=== PATIENT | female | born 1950 | race Caucasian/White ===

== ENCOUNTER → 2016-04-25 | Outpatient (CLI) | payer MEDICARE, OTHER | LOC: RAD 18:52 | PROVIDERS: ATTEND Neurological Surgery | DX: M54.2 Cervicalgia (principal); M54.5 Low back pain; M47.892 Other spondylosis, cervical region; M51.36 Other intervertebral disc degeneration, lumbar region | CPT/HCPCS: 72141; 72148 ==

== ENCOUNTER → 2016-05-18 | Outpatient (CLI) | payer MEDICARE, OTHER ==
[2016-05-18 12:36] LABS: PROTHROMBIN TIME 13.5 SEC (11.4-15.4)
[2016-05-18 12:37] LABS: PARTIAL THROMBOPLASTIN TIME 31.1 SEC (23.5-35.8)
== END ==
LOC: OD 11:50
PROVIDERS: ATTEND Pain Medicine Interventional Pain Medicine
DX: D68.0 Von Willebrand disease (principal)
CPT/HCPCS: 36415; 85610; 85730

== ENCOUNTER 2016-08-03 07:44 | Day surgery (SDC) | payer MEDICARE, OTHER ==
--- NOTE | 2016-07-27 14:30 | HISTORY AND PHYSICAL E ---
History and Physical NAME: MIAN NGO : 1950 AGE: 65Y ADMITTED: 08/03/2016 ROOM: REASON FOR ADMISSION: Admit for endoscopy on 08/03/2016. HISTORY AND PHYSICAL: The patient presented with dysphagia. She did have endoscopy and dilatation in 2012 showing esophageal stricture. We gave her Fentanyl 150 mcg and Versed 6 mg. Endoscopy showed a stricture at distal esophagus versus spasm, and we were unable to advance the scope. We started with balloon size 8, 9, 10. With the balloon size 10 x3 we advanced the scope after the balloon went into the stomach. There was no bleeding, no sign of effective dilatation. Stomach showed no ulcers, mild gastritis. Basically, the patient did have a spasm that responded to dilatation with balloon size 8, 9 and 10. She was given a GI cocktail which has 10 mL viscous Xylocaine 10%, 10 mL and 15 mL Mylanta, total 35 mL every 4 hours, and we gave her a supply for a few days. Upper stomach shows some gastritis. Chest x-ray is negative. PAST MEDICAL HISTORY: The patient did have a history of hypoglycemia, type 2 diabetes, gastroparesis, hypothyroidism, IBS, fibromyalgia. PHYSICAL EXAMINATION: VITAL SIGNS: Blood pressure is 120/60, pulse 80, respirations 18, temp 98. HEENT: Normal. ABDOMEN: Soft. NEUROLOGIC: Negative. END OF DICTATION DICTATING PHYSICIAN: JIL ZAYAS M.D. [id number] PHY#: [id number] ID: [id number] JOB#: [id number] ACCT: [id number] cc:JIL ZAYAS M.D. >
[2016-07-31 12:38] LABS: HEMATOCRIT 37.6 % (36.0-47.0); HEMOGLOBIN 12.3 g/dL (12.0-15.5); HGB HCT DIFFERENCE -0.7; MEAN CORPUSCULAR HEMOGLOBIN 25.3 pg (27.0-33.4); MEAN CORPUSCULAR HGB CONC 32.6 g/dL (32.0-36.0); MEAN CORPUSCULAR VOLUME 77 fl (80-97); RED BLOOD COUNT 4.85 10^6/uL (3.72-5.28); RED CELL DISTRIBUTION WIDTH 14.7 % (11.5-14.0); WHITE BLOOD COUNT 8.7 10^3/uL (4.0-10.5)
[2016-07-31 12:57] LABS: ANION GAP 12 (5-19); BLOOD UREA NITROGEN 28 mg/dL (7-20); CALCIUM 9.8 mg/dL (8.4-10.2); CARBON DIOXIDE 28 mmol/L (22-30); CHLORIDE 101 mmol/L (98-107); CREATININE RESULT 0.78 mg/dL (0.52-1.25); GLUCOSE 150 mg/dL (75-110); POTASSIUM 4.3 mmol/L (3.6-5.0); SODIUM 140.7 mmol/L (137-145)
--- NOTE | 2016-07-31 13:23 | EKG REPORT ---
SEVERITY:- NORMAL ECG - SINUS RHYTHM : Confirmed by: Peyman Cavazos MD 31-Jul-2016 13:22:10
[~2016-08-03 07:44] MED LIST: LACTATED RINGERS 1000 ML IV PRN; LIDOCAINE 0.5% INJ-PF (5 MG/ML) 50 ML SDV SUBCUT PRN
[2016-08-03] MEDS ORDERED: PROPOFOL INJ 200 MG/20 ML VIAL IV ONE (08:41)
[2016-08-03] MEDS ORDERED: PROMETHAZINE HCL INJ 25 MG/1 ML VIAL IV PRN ×2 (09:47)
[2016-08-03] MEDS ORDERED: FENTANYL CITRATE INJ/PF 100 MCG/2 ML AMPUL IV PRN ×3 (09:47)
[2016-08-03] MEDS ORDERED: MEPERIDINE HCL/PF INJ 25 MG/1 ML DISP.SYRIN IV PRN (09:47)
[2016-08-03] MEDS ORDERED: DIPHENHYDRAMINE HCL 50 MG/ML VIAL IV PRN (09:47)
[2016-08-03 12:01] VITALS: BP 129/60
--- NOTE | 2016-08-03 12:59 | OPERATIVE REPORT E ---
Operative Report NAME: MIAN NGO : 1950 AGE: 65Y DATE OF SURGERY: 08/02/2016 ROOM: PREOPERATIVE DIAGNOSIS: The patient is a 65-year-old female, preop dysphagia, abdominal pain. POSTOPERATIVE DIAGNOSES: 1. Moderate gastritis. 2. Mild duodenitis. 3. Mild esophagitis. SURGEON: JIL ZAYAS M.D. TISSUE REMOVED OR ALTERED: Balloon dilatation, size 12 x3. ANESTHESIA: Done in the OR with anesthesia standby, propofol. DESCRIPTION OF PROCEDURE: After adequate sedation, scope advanced, no difficulty. Esophagoscopy: Junction at 40 cm. There was no definite stricture seen but there was some spasm. Balloon dilatation because of the persistent dysphagia and the previous history of dilatation, we proceed and dilated the GE junction with size 12 balloon x3. There was no bleeding. Gastroscopy: Diffuse gastritis. Duodenoscopy: Mild duodenitis. CONCLUSION: 1. Esophageal spasm versus mild stricture. No definite stricture, dilated size 12. 2. Gastritis. 3. Duodenitis. PLAN: 1. Full liquid diet today. 2. Soft, low-residue tomorrow. 3. Hold aspirin and nonsteroidals 3 days. DICTATING PHYSICIAN: JIL ZAYAS M.D. [id number] [facility]#: [id number] ID: [id number] JOB#: [id number] ACCT: [id number] cc:[facility] JIL ZAYAS M.D. >
--- NOTE | 2016-08-05 19:25 | DISCHARGE SUMMARY E ---
Discharge Summary NAME: MIAN NGO : 1950 AGE: 65Y ADMITTED: 08/03/2016 DISCHARGED: 08/03/2016 HISTORY AND PHYSICAL: The patient is 65 and presented with dysphagia. Upper endoscopy shows most likely spasm with no stricture. The patient was dilated with balloon size 12 x3. No evidence of bleeding. The patient discharged on full liquid diet today, then soft low residue and the patient is to see us in the office in the next few days. FINAL DIAGNOSES: 1. Reflux. 2. Abdominal pain. 3. Gastritis. 4. Esophageal spasm rule out stricture. PROCEDURE: EGD with balloon dilatation size 12 x3 done under propofol with anesthesia standby. The patient tolerated the procedure well and discharged to her room in stable condition. PLAN: Soft diet tomorrow, full liquid today. The patient is to see us in the office in the next few days. DICTATING PHYSICIAN: JIL ZAYAS M.D. [id number] PHY#: [id number] ID: [id number] JOB#: [id number] ACCT: [id number] cc:JIL ZAYAS M.D. >
== END 2016-08-03 12:03 | disposition home or self-care (01) ==
LOC: OROUT 07:44
PROVIDERS: ATTEND Specialist
PROC: 0D758ZZ Dilation of Esophagus, Via Natural or Artificial Opening Endoscopic (ICD-10-PCS; principal; 2016-08-03 09:45)
DX: K22.4 Dyskinesia of esophagus (principal); K21.0 Gastro-esophageal reflux disease with esophagitis; K29.70 Gastritis, unspecified, without bleeding; K29.80 Duodenitis without bleeding; K21.9 Gastro-esophageal reflux disease without esophagitis; E03.9 Hypothyroidism, unspecified; E11.9 Type 2 diabetes mellitus without complications; J45.909 Unspecified asthma, uncomplicated; I49.9 Cardiac arrhythmia, unspecified; M19.90 Unspecified osteoarthritis, unspecified site; I10 Essential (primary) hypertension; Z79.899 Other long term (current) drug therapy; Z86.73 Personal history of transient ischemic attack (TIA), and cerebral infarction without residual deficits
CPT/HCPCS: 43249; 93005; 36415; 82962; 85027; 80048; 71020; 93010; C1726; J2704; 740

== ENCOUNTER → 2016-08-17 | Outpatient (CLI) | payer MEDICARE, OTHER ==
[2016-08-17 14:11] LABS: PROTHROMBIN TIME 13.3 SEC (11.4-15.4)
[2016-08-17 14:12] LABS: PARTIAL THROMBOPLASTIN TIME 29.3 SEC (23.5-35.8)
== END ==
LOC: OD 13:20
PROVIDERS: ATTEND Pain Medicine Interventional Pain Medicine
DX: D68.0 Von Willebrand disease (principal)
CPT/HCPCS: 36415; 85610; 85730

== ENCOUNTER → 2016-10-03 | Outpatient (CLI) | payer MEDICARE, OTHER ==
[2016-10-03 15:05] LABS: PROTHROMBIN TIME 13.5 SEC (11.4-15.4)
[2016-10-03 15:06] LABS: PARTIAL THROMBOPLASTIN TIME 30.9 SEC (23.5-35.8)
== END ==
LOC: OD 13:38
PROVIDERS: ATTEND Pain Medicine Interventional Pain Medicine
DX: Z79.891 Long term (current) use of opiate analgesic (principal); Z79.01 Long term (current) use of anticoagulants
CPT/HCPCS: 36415; 85610; 85730

== ENCOUNTER → 2017-07-10 | Outpatient (CLI) | payer MEDICARE, OTHER ==
--- NOTE | 2017-07-11 19:12 | WOMENS IMAGING REPORT ---
EXAM DESCRIPTION: 3D SCREENING MAMMO BILAT COMPLETED DATE/TIME: 07/10/2017 4:38 pm REASON FOR STUDY: ROUTINE SCREENING;Z12.31 Z12.31 ENCNTR SCREEN MAMMOGRAM FOR MALIGNANT NEOPLASM OF VIC COMPARISON: Mammograms 09/22/2011 TECHNIQUE: Standard craniocaudal and mediolateral oblique views of each breast recorded using digita l acquisition and breast tomosynthesis. LIMITATIONS: None. FINDINGS: Findings present which are benign by mammographic criteria. No suspicious masses, calcifi cations or architectural distortion. Pertinent benign findings: Stable benign bilateral breast parenchymal and vascular calcifications. Read with the assistance of CAD. .[facility] - R2 Cenova Version 1.3 .[facility] - R2 Cenova Version 1.3 .[facility] - R2 Cenova Version 2.4 .[facility] - R2 Cenova Version 2.4 .[facility] - R2 Rope Walker Version 9.2 Benign mammographic findings may include one or more of the following: Smooth masses, popcorn/rim/co arse calcifications, asymmetries, post-procedure changes, and lesions with long-standing stability. IMPRESSION: BENIGN MAMMOGRAPHIC FINDINGS. BIRADS 2 BREAST DENSITY: b. There are scattered areas of fibroglandular density. BIRAD: 2 BENIGN FINDING(S) RECOMMENDATION: RECOMMENDATION: ROUTINE SCREENING Please continue yearly bilateral screening tomosynthesis in June 2018 COMMENT: The patient has been notified of the results by letter per [place] requirements. Additional no tification policies are in place for contacting patient with suspicious or incomplete findings. Quality ID #[id number]: The [employer] recommends an annual screening mammogram for women aged 40 years or over. This facility utilizes a reminder system to ensure that all patients receive reminder letters, and/or direct phone calls for appointments. This includes reminders for routine scr eening mammograms, diagnostic mammograms, or other Breast Imaging Interventions when appropriate. Th is patient will be placed in the appropriate reminder system. The [employer] (ACR) has developed recommendations for screening MRI of the breast s in certain patient populations, to be used in conjunction with mammography. Breast MRI surveillanc e may be appropriate for women with more than 20% lifetime risk of developing breast cancer as deter mined by genetic testing, significant family history of the disease, or history of mantle radiation f or Hodgkins Disease. ACR Practice Guidelines 2008. DBT Technology DBT is a type of tomographic mammography. With conventional mammography, overlapping breast tissue ma y make lesions difficult to detect, even with good compression. DBT uses an x-ray tube that rotates a round the breast, taking images at different angles. These images are then combined to create thin sl ices of the breast that the radiologist can view as a 3D reconstruction. The HoloNexio unit can perform full-field digital mammograms (2D imaging); or DBT (3D imaging); or both, in a combination mode that quickly performs both the mammogram and the tomosynthesis scan while the breast is still compressed. PQRS 6045F: Fluoroscopic imaging is not utilized for breast tomosynthesis. TECHNICAL DOCUMENTATION: FINDING NUMBER: (1) ASSESSMENT: (1) JOB ID: [id number] [employer]- All Rights Reserved Reading location - IP/workstation name: [email or web address]
== END ==
LOC: WI 15:33
PROVIDERS: ATTEND Internal Medicine Medical Oncology
DX: Z12.31 Encounter for screening mammogram for malignant neoplasm of breast (principal)
CPT/HCPCS: 77063; 77067

== ENCOUNTER 2017-10-18 06:55 | Day surgery (SDC) | payer MEDICARE, OTHER ==
[~2017-10-18 06:55] MED LIST changes: +BESIFLOXACIN HCL 0.6% OPH SUSP 5 ML BOTTLE OS PRN; +CYCLOPENTOLATE 0.2%/PHENYLEPHRINE 1% OPH SOLN 2 ML OS PRN; +KETOROLAC TROMETHAMINE 0.45% 4 DROP/0.4 ML DROPERETTE OS PRN; -LACTATED RINGERS 1000 ML IV PRN; -LIDOCAINE 0.5% INJ-PF (5 MG/ML) 50 ML SDV SUBCUT PRN; +TETRACAINE HCL 0.5% OPH SOLN 2 ML OS PRN; +TROPICAMIDE 1% OPH SOLN 3 ML OS PRN
[2017-10-18] MEDS ORDERED: MIDAZOLAM 2 MG/2 ML INJ ONE ×2 (07:00→08:58)
[2017-10-18] MEDS: TROPICAMIDE 1% OPH SOLN 3 ML OS PRN ×3 (07:43→08:03)
[2017-10-18] MEDS: BESIFLOXACIN HCL 0.6% OPH SUSP 5 ML BOTTLE OS PRN ×3 (07:43→08:46)
[2017-10-18] MEDS: CYCLOPENTOLATE 0.2%/PHENYLEPHRINE 1% OPH SOLN 2 ML OS PRN ×4 (07:43→08:03)
[2017-10-18] MEDS: TETRACAINE HCL 0.5% OPH SOLN 2 ML OS PRN ×3 (07:44→08:26)
[2017-10-18] MEDS ORDERED: EPINEPHRINE INJ/PF 1 MG/1 ML AMPULE ONE (07:45)
[2017-10-18] MEDS ORDERED: LIDOCAINE 1% INJ-PF (10 MG/ML) 30 ML SDV ONE (07:45)
[2017-10-18] MEDS ORDERED: CHONDR SU A NA/HYALUR INTRAOC KIT (SURGICARE) ONE (07:46)
[2017-10-18] MEDS ORDERED: FENTANYL CITRATE INJ/PF 100 MCG/2 ML AMPUL ONE (08:07)
--- NOTE | 2017-10-18 19:00 | [facility] DISCHARGE SUMMARY E ---
[facility] Discharge Summary NAME: MIAN NGO AGE: 67Y ADMITTED: 10/18/2017 DISCHARGED: 10/18/2017 HOSPITAL COURSE: This is a 67-year-old female who underwent cataract extraction of the left eye. DIAGNOSIS: CATARACT, LEFT EYE. She underwent surgery because she was having trouble seeing words on the television. DISCHARGE INSTRUCTIONS: She should be on a regular diet. No bending at her waist, no heavy lifting. She should use her Besivance, Ilevro, and Durezol at 3 p.m. and 8 p.m. and sleep with a rigid shield. I will see her for her 1 day postoperative tomorrow. DICTATING PHYSICIAN: CHASITY COVARRUBIAS M.D. [id number] PHY#: [id number] ID: [id number] JOB#: [id number] ACCT: [id number] cc:CHASITY COVARRUBIAS M.D. >
--- NOTE | 2017-10-18 19:01 | [facility] OPERATIVE REPORT E ---
[facility] Operative Report NAME: MIAN NGO AGE: 67Y DATE OF SURGERY: 10/18/2017 ROOM: PREOPERATIVE DIAGNOSIS: CATARACT, LEFT EYE. POSTOPERATIVE DIAGNOSIS: CATARACT, LEFT EYE. OPERATION: Cataract extraction with insertion of an IOL of the left eye. SURGEON: CHASITY COVARRUBIAS M.D. ANESTHESIA: Topical. PROCEDURE: After obtaining appropriate consent, the patient's left eye was prepped and draped in sterile fashion as well as the surgeon in a sterile manner and cataract surgery was started. First a paracentesis blade was used to make a side-port incision. Viscoelastic was used to inflate the anterior chamber. Next a 2.4 mm incision was made with a 2.4 mm blade, clear corneal temporally. A continuous capsulorrhexis was made using a cystotome and Utrata forceps. Following this hydrodissection was carried out to make the lens fully loose and mobile and it was rotated 90 degrees. Following this, a mntokt-pam-zhnrzcy technique was used to phacoemulsify the lens with a CDE of 5.64. The remaining cortex was removed with irrigation/aspiration. Provisc was instilled into the capsular bag to inflate the bag. A SN60WF, 18.5 diopter lens was placed. The remaining viscoelastic material was removed with irrigation/aspiration. Following this, the incision was found to be watertight. Besivance was instilled into the eye and a protective shield was placed over the eye. The patient returned to the postoperative recovery in stable condition. DICTATING PHYSICIAN: CHASITY COVARRUBIAS M.D. [id number] PHY#: [id number] ID: [id number] JOB#: [id number] ACCT: [id number] cc:CHASITY COVARRUBIAS M.D. >
== END 2017-10-18 09:35 | disposition home or self-care (01) ==
LOC: SC 06:55
PROVIDERS: ATTEND Internal Medicine
DX: H25.813 Combined forms of age-related cataract, bilateral (principal); J44.9 Chronic obstructive pulmonary disease, unspecified; I10 Essential (primary) hypertension; M19.90 Unspecified osteoarthritis, unspecified site; K21.9 Gastro-esophageal reflux disease without esophagitis; E11.9 Type 2 diabetes mellitus without complications; E07.9 Disorder of thyroid, unspecified; Z79.51 Long term (current) use of inhaled steroids; Z79.899 Other long term (current) drug therapy; Z79.84 Long term (current) use of oral hypoglycemic drugs; Z79.4 Long term (current) use of insulin; Z88.5 Allergy status to narcotic agent; Z88.0 Allergy status to penicillin; Z88.8 Allergy status to other drugs, medicaments and biological substances
CPT/HCPCS: 66984; 82962; V2632; J2250; J3490 ×2; A9270; J0171; 142; J3010

== ENCOUNTER 2017-11-15 09:10 | Day surgery (SDC) | payer MEDICARE, OTHER ==
[~2017-11-15 09:10] MED LIST changes: -BESIFLOXACIN HCL 0.6% OPH SUSP 5 ML BOTTLE OS PRN; -CYCLOPENTOLATE 0.2%/PHENYLEPHRINE 1% OPH SOLN 2 ML OS PRN; +KETOROLAC TROMETHAMINE 0.45% 4 DROP/0.4 ML DROPERETTE OD PRN; -KETOROLAC TROMETHAMINE 0.45% 4 DROP/0.4 ML DROPERETTE OS PRN; -TETRACAINE HCL 0.5% OPH SOLN 2 ML OS PRN; -TROPICAMIDE 1% OPH SOLN 3 ML OS PRN
[2017-11-15] MEDS: CYCLOPENTOLATE 0.2%/PHENYLEPHRINE 1% OPH SOLN 2 ML OD PRN ×3 (09:36→10:05)
[2017-11-15] MEDS: TROPICAMIDE 1% OPH SOLN 3 ML OD PRN ×3 (09:36→10:05)
[2017-11-15] MEDS: BESIFLOXACIN HCL 0.6% OPH SUSP 5 ML BOTTLE OD PRN ×4 (09:37→10:45)
[2017-11-15] MEDS: TETRACAINE HCL 0.5% OPH SOLN 2 ML OD PRN ×4 (09:38→10:19)
[2017-11-15] MEDS ORDERED: MIDAZOLAM 2 MG/2 ML INJ ONE ×2 (10:00→10:34)
[2017-11-15] MEDS: LIDOCAINE 1% INJ-PF (10 MG/ML) 30 ML SDV ONE ×2 (10:19→10:35)
[2017-11-15] MEDS: CHONDR SU A NA/HYALUR INTRAOC KIT (SURGICARE) ONE ×2 (10:20→10:35)
[2017-11-15] MEDS: EPINEPHRINE INJ/PF 1 MG/1 ML AMPULE ONE ×2 (10:20→10:35)
--- NOTE | 2017-11-15 20:45 | [facility] DISCHARGE SUMMARY E ---
[facility] Discharge Summary NAME: MIAN NGO AGE: 67Y ADMITTED: 11/15/2017 DISCHARGED: 11/15/2017 FINAL DIAGNOSIS: Cataract, right eye. HOSPITAL COURSE: This is a 67-year-old female who underwent cataract extraction of the right eye. She underwent surgery because she was having difficulty with increased glare from headlights. DISCHARGE INSTRUCTIONS: She should be on a regular diet. No bending at her waist, no heavy lifting. She should use her Besivance, Ilevro and Durezol at 3:00 p.m. and 8:00 p.m. Sleep with a rigid shield. I will see her for a 1-day postoperative tomorrow. DICTATING PHYSICIAN: CHASITY COVARRUBIAS M.D. [id number] PHY#: [id number] ID: [id number] JOB#: [id number] ACCT: [id number] cc:CHASITY COVARRUBIAS M.D. >
--- NOTE | 2017-11-15 20:45 | [facility] OPERATIVE REPORT E ---
[facility] Operative Report NAME: MIAN NGO AGE: 67Y DATE OF SURGERY: 11/15/2017 ROOM: PREOPERATIVE DIAGNOSIS: CATARACT, RIGHT EYE. POSTOPERATIVE DIAGNOSIS: CATARACT, RIGHT EYE. OPERATION: Cataract extraction with insertion of an IOL of the right eye. SURGEON: CHASITY COVARRUBIAS M.D. ANESTHESIA: Topical. PROCEDURE: After obtaining appropriate consent, the patient's right eye was prepped and draped in sterile fashion as well as the surgeon in a sterile manner and cataract surgery was started. First a paracentesis blade was used to make a side-port incision. Viscoelastic was used to inflate the anterior chamber. Next a 2.4 mm incision was made with a 2.4 mm blade, clear corneal temporally. A continuous capsulorrhexis was made using a cystotome and Utrata forceps. Following this hydrodissection was carried out to make the lens fully loose and mobile and it was rotated 90 degrees. Following this, a uzziml-vwn-qysxvfb technique was used to phacoemulsify the lens with a CDE of 5.39. The remaining cortex was removed with irrigation/aspiration. Provisc was instilled into the capsular bag to inflate the bag. A SN60WF, 18.0 diopter lens was placed. The remaining viscoelastic material was removed with irrigation/aspiration. Following this, the incision was found to be watertight. Besivance was instilled into the eye and a protective shield was placed over the eye. The patient returned to the postoperative recovery in stable condition. DICTATING PHYSICIAN: CHASITY COVARRUBIAS M.D. [id number] PHY#: [id number] ID: [id number] JOB#: [id number] ACCT: [id number] cc:CHASITY COVARRUBIAS M.D. >
== END 2017-11-15 11:31 | disposition home or self-care (01) ==
LOC: SC 09:10
PROVIDERS: ATTEND Internal Medicine
DX: H25.813 Combined forms of age-related cataract, bilateral (principal); H43.813 Vitreous degeneration, bilateral; H04.123 Dry eye syndrome of bilateral lacrimal glands; H40.013 Open angle with borderline findings, low risk, bilateral; Z96.1 Presence of intraocular lens; E03.9 Hypothyroidism, unspecified; E78.00 Pure hypercholesterolemia, unspecified; K21.9 Gastro-esophageal reflux disease without esophagitis; E11.9 Type 2 diabetes mellitus without complications; I10 Essential (primary) hypertension; M79.7 Fibromyalgia; G47.30 Sleep apnea, unspecified; G43.909 Migraine, unspecified, not intractable, without status migrainosus; Z88.0 Allergy status to penicillin; Z88.5 Allergy status to narcotic agent; Z88.8 Allergy status to other drugs, medicaments and biological substances; Z88.6 Allergy status to analgesic agent; Z79.51 Long term (current) use of inhaled steroids; Z79.899 Other long term (current) drug therapy; Z79.4 Long term (current) use of insulin; Z79.84 Long term (current) use of oral hypoglycemic drugs
CPT/HCPCS: 66984; 82962; V2632; J2250; J3490 ×2; A9270; J0171; 142

== ENCOUNTER → 2017-12-26 | Outpatient (CLI) | payer MEDICARE, OTHER ==
[2017-12-26 15:48] LABS: INTERNATIONAL RATION (INR) 1.02; PROTHROMBIN TIME 13.9 SEC (11.4-15.4)
[2017-12-26 15:49] LABS: PARTIAL THROMBOPLASTIN TIME 30.5 SEC (23.5-35.8)
== END ==
LOC: OD 14:57
PROVIDERS: ATTEND Pain Medicine Interventional Pain Medicine
DX: D68.0 Von Willebrand disease (principal)
CPT/HCPCS: 36415; 85610; 85730

== ENCOUNTER → 2018-02-06 | Outpatient (CLI) | payer MEDICARE, OTHER ==
[2018-02-06 16:10] LABS: INTERNATIONAL RATION (INR) 0.93
[2018-02-06 16:11] LABS: PARTIAL THROMBOPLASTIN TIME 31.4 SEC (23.5-35.8)
== END ==
LOC: OD 14:49
PROVIDERS: ATTEND Pain Medicine Interventional Pain Medicine
DX: D68.0 Von Willebrand disease (principal)
CPT/HCPCS: 36415; 85610; 85730

== ENCOUNTER → 2018-04-10 | Outpatient (CLI) | payer MEDICARE, OTHER ==
[2018-04-10 17:41] LABS: INTERNATIONAL RATION (INR) 0.92; PROTHROMBIN TIME 12.8 SEC (11.4-15.4)
[2018-04-10 17:42] LABS: PARTIAL THROMBOPLASTIN TIME 29.2 SEC (23.5-35.8)
== END ==
LOC: LAB 17:13
PROVIDERS: ATTEND Pain Medicine Interventional Pain Medicine
DX: D68.0 Von Willebrand disease (principal)
CPT/HCPCS: 36415; 85610; 85730

== ENCOUNTER → 2018-07-04 | Outpatient (CLI) | payer MEDICARE, OTHER ==
[2018-07-04 17:06] LABS: INTERNATIONAL RATION (INR) 0.93; PROTHROMBIN TIME 12.9 SEC (11.4-15.4)
[2018-07-04 17:07] LABS: PARTIAL THROMBOPLASTIN TIME 22.1 SEC (23.5-35.8)
== END ==
LOC: OD 15:46
PROVIDERS: ATTEND Pain Medicine Interventional Pain Medicine
DX: Z79.891 Long term (current) use of opiate analgesic (principal); D68.0 Von Willebrand disease
CPT/HCPCS: 36415; 85610; 85730

== ENCOUNTER → 2018-09-20 | Outpatient (CLI) | payer MEDICARE, OTHER ==
[2018-09-20 15:12] LABS: INTERNATIONAL RATION (INR) 0.92; PROTHROMBIN TIME 12.8 SEC (11.4-15.4)
== END ==
LOC: OD 13:39
PROVIDERS: ATTEND Pain Medicine Interventional Pain Medicine
DX: D68.0 Von Willebrand disease (principal); Z79.891 Long term (current) use of opiate analgesic
CPT/HCPCS: 36415; 85610; 85730

== ENCOUNTER 2018-09-24 15:41 | Emergency (ER) | payer MEDICARE, OTHER ==
[2018-09-24] MEDS ORDERED: HYDROMORPHONE HCL INJ/PF 2 MG/ML AMPULE IV ONE (17:13)
--- NOTE | 2018-09-24 17:16 | ER Document Report ---
ED Medical Screen (RME) - General Chief Complaint: High Blood Pressure Stated Complaint: BLOOD PRESSURE PROBLEM Time Seen by Provider: 09/24/18 17:07 Primary Care Provider: COURTNEY MARTÍNEZ MD [Primary Care Provider] - Follow up as needed Mode of Arrival: Ambulatory Information source: Patient Notes: Patient presents the emergency department with complaints of back pain headache. Also reports she was sent over from [facility] for hypertensive emergency. Patient reports she was supposed to get a procedure done today with dr martínez at [facility]. Patient reports whenever she is in pain her blood pressure really spikes. She reports she usually takes 4 mg of Dilaudid every 4 hours. Last dose was at 1400 I have greeted and performed a rapid initial assessment of this patient. A comprehensive ED assessment and evaluation of the patient, analysis of test results and completion of the medical decision making process will be conducted by additional ED providers. Dictation of this chart was performed using voice recognition software; therefore, there may be some unintended grammatical errors. TRAVEL OUTSIDE OF THE [place] IN LAST 30 DAYS: No - Related Data Allergies/Adverse Reactions: codeine [Codeine] Allergy (Severe, Verified 10/18/17 07:52) RASH, ITCHING, SOB hydrochlorothiazide Allergy (Severe, Verified 10/18/17 07:52) Diarrhea lisinopril Allergy (Severe, Verified 10/18/17 07:52) Diahhrea morphine [Morphine] Allergy (Severe, Verified 10/18/17 07:52) SEVERE VOMITING NSAIDS (Non-Steroidal Anti-Inflamma [Nsaids] Allergy (Severe, Verified 10/18/17 07:52) INCREASE BLEEDING,SPONTANEOUS VESSELS BLEED Penicillins Allergy (Severe, Verified 10/18/17 07:52) BURNING RASH Soap [From Betadine] Allergy (Severe, Verified 10/18/17 07:52) BURNING RASH tapentadol HCl [From Nucynta] Allergy (Severe, Verified 10/18/17 07:52) vertigo severe thimerosal [Thimerosal] Allergy (Severe, Verified 10/18/17 07:52) eyes swell, rash, very sick latex [Latex] Allergy (Intermediate, Verified 10/18/17 07:52) ITCHING, BURNING EYES, swelling eyes albiglutide [From Tanzeum] Allergy (Verified 10/18/17 07:52) Makes IBS and GERD worse, "unable to keep anything down" gabapentin [From Neurontin] Allergy (Verified 10/18/17 07:52) "Excessive sweating" glimepiride [From Amaryl] Allergy (Verified 10/18/17 07:52) Makes IBS and GERD worse, "unable to keep anything down" metformin Allergy (Verified 10/18/17 07:52) Makes IBS and GERD worse, "unable to keep anything down" povidone-iodine [From Betadine] Allergy (Verified 10/18/17 07:52) BURNING RASH tramadol [Tramadol] Allergy (Verified 10/18/17 07:52) iodine [Iodine] Adverse Reaction (Severe, Verified 10/18/17 07:52) BURNING, RASH garlic Allergy (Severe, Uncoded 07/28/16 13:21) bloating, vomiting, diarrhea shrimp Allergy (Severe, Uncoded 07/28/16 13:21) No Enteric medications Allergy (Uncoded 07/28/16 13:21) Past Medical History - Social History Frequency of alcohol use: None Drug Abuse: None - Past Medical History Cardiac Medical History: Reports: Hx Hypertension - USE MANUAL CUFF/MEDICATED Denies: Hx Atrial Fibrillation, Hx Congestive Heart Failure, Hx Coronary Artery Disease, Hx Heart Attack, Hx Hypercholesterolemia, Hx Peripheral Vascular Disease, Hx Pulmonary Embolism, Hx Heart Murmur Pulmonary Medical History: Reports: Hx Asthma, Hx Bronchitis - hx of, Hx Pneumonia - august 2012, Hx Sleep Apnea - cpap Denies: Hx COPD, Hx Respiratory Failure, Hx Tuberculosis Neurological Medical History: Reports: Hx Migraine. Denies: Hx Cerebrovascular Accident, Hx Seizures Endocrine Medical History: Reports: Hx Diabetes Mellitus Type 2, Hx Hypothyroidism - on meds. Denies: Hx Graves' Disease, Hx Hyperthyroidism Renal/ Medical History: Denies: Hx End Stage Renal Disease, Hx Kidney Stones, Hx Ovarian Cysts, Hx Peritoneal Dialysis, Hx Pelvic Inflammatory Disease Malignancy Medical History: Denies: Hx Breast Cancer, Hx Cervical Cancer, Hx Leukemia, Hx Lung Cancer, Hx Ovarian Cancer GI Medical History: Reports: Hx Gastroesophageal Reflux Disease - severe, Hx Hiatal Hernia, Hx Irritable Bowel - hx of. Denies: Hx Crohn's Disease, Hx Hepatitis, Hx Liver Failure, Hx Pancreatitis, Hx Ulcer Musculoskeltal Medical History: Reports Hx Arthritis - OSTEOARTHRITIS, Reports Hx Fibromyalgia, Denies Hx Multiple Sclerosis, Denies Hx Muscular Dystrophy, Denies Hx Systemic Lupus Erythematosus Psychiatric Medical History: Denies: Hx Bipolar Disorder, Hx Dementia, Hx Depression, Hx Post Traumatic Stress Disorder, Hx Schizophrenia Traumatic Medical History: Denies: Hx Fractures Infectious Medical History: Denies: Hx Hepatitis, Hx HIV Past Surgical History: Reports: Hx Appendectomy, Hx Cholecystectomy, Hx Hysterectomy, Hx Tonsillectomy - t and a. Denies: Hx Colostomy, Hx Mastectomy, Hx Open Heart Surgery, Hx Pacemaker - Immunizations Hx Diphtheria, Pertussis, Tetanus Vaccination: Yes Physical Exam - Vital signs Vitals: Temp Pulse Resp BP Pulse Ox 98.3 F 105 H 20 207/92 H 95 09/24/18 15:52 09/24/18 15:52 09/24/18 15:52 09/24/18 15:52 09/24/18 15:52 Course - Vital Signs Vital signs: Temp Pulse Resp BP Pulse Ox 98.3 F 105 H 20 162/83 H 95 09/24/18 15:52 09/24/18 15:52 09/24/18 15:52 09/24/18 18:19 09/24/18 15:52 - Laboratory Result Diagrams: 09/24/18 17:23 09/24/18 17:23 Laboratory results interpreted by me: 09/24/18 17:23 WBC 11.8 H RBC 5.61 H MCH 26.9 L RDW 15.6 H Doctor's Discharge - Discharge Referrals: COURTNEY MARTÍNEZ MD [Primary Care Provider] - Follow up as needed
[2018-09-24 17:52] LABS: ABSOLUTE BASOPHILS # (AUTO) 0.1 10^3/uL (0.0-0.2); ABSOLUTE EOSINOPHILS # (AUTO) 0.1 10^3/uL (0.0-0.6); ABSOLUTE LYMPHOCYTES (AUTO) 3.9 10^3/uL (0.5-4.7); ABSOLUTE NEUT (AUTO) 6.7 10^3/uL (1.7-8.2); BASOPHILS % (AUTO) 0.6 % (0-2); EOSINOPHILS % (AUTO) 0.8 % (0-6); HEMATOCRIT 44.6 % (36.0-47.0); HEMOGLOBIN 15.1 g/dL (12.0-15.5); MEAN CORPUSCULAR HEMOGLOBIN 26.9 pg (27.0-33.4); MEAN CORPUSCULAR HGB CONC 33.8 g/dL (32.0-36.0); MEAN CORPUSCULAR VOLUME 80 fl (80-97); MONOCYTES % (AUTO) 8.4 % (3-13); PLATELET COUNT 266 10^3/uL (150-450); RED BLOOD COUNT 5.61 10^6/uL (3.72-5.28); RED CELL DISTRIBUTION WIDTH 15.6 % (11.5-14.0); SEGMENTED NEUTROPHILS % (AUTO) 57.2 % (42-78); TOTAL CELLS COUNTED % (AUTO) 100 %; WHITE BLOOD COUNT 11.8 10^3/uL (4.0-10.5)
--- NOTE | 2018-09-24 19:35 | ER Document Report ---
ED General - General Chief Complaint: High Blood Pressure Stated Complaint: BLOOD PRESSURE PROBLEM Time Seen by Provider: 09/24/18 17:07 Primary Care Provider: COURTNEY MARTÍNEZ MD [ACTIVE STAFF] - Follow up in 3-5 days Mode of Arrival: Ambulatory Notes: Patient is a 68-year-old female with chronic low back pain and hypertension that presents to the emergency department for chief complaint of elevated blood pressure at pain management. Patient was due to get epidural injection today, however when she was there her blood pressure was in the 200 systolic, they did not want to proceed with the procedure, it was 210/110 according to the patient. She apparently has issues at the L4-L5. She is typically on clonidine and Micardis, she did not take her clonidine last night, and in fact she supposed to be on 0.2 mg of clonidine and she is only been taking 0.1 because she forgot it was recently changed. She denies having any chest pain, shortness of breath, difficulty breathing, changes in her urinary patterns, headache, confusion, numbness, weakness or tingling. She otherwise denies any other symptoms other than the pain in her back which typically elevates her blood pressure. She did receive Dilaudid in triage, and her blood pressures come down and she is overall feeling much better. Past Medical History: Chronic low back pain, hypertension, gastroparesis Past Surgical History: EGD, with dilatation of duodenal stricture Social History: Denies current tobacco, alcohol or drug use, patient is a retired nurse. Family History: Reviewed and noncontributory for presenting illness Allergies: Reviewed, see documented allergy list. REVIEW OF SYSTEMS: Other than noted above, the 12 point review of systems was reviewed with the patient and were negative, all pertinent findings are included in the HPI. PHYSICAL EXAMINATION: Vital signs reviewed, nursing noted reviewed. GENERAL: Well-appearing, well-nourished and in no acute distress. HEAD: Atraumatic, normocephalic. EYES: Eyes appear normal, extraocular movements intact, sclera anicteric, conjunctiva are normal. ENT: nares patent, oropharynx clear without exudates. Moist mucous membranes. NECK: Normal range of motion, supple without lymphadenopathy LUNGS: Breath sounds clear to auscultation bilaterally and equal. No wheezes rales or rhonchi. HEART: Regular rate and rhythm without murmurs ABDOMEN: Soft, nontender, normoactive bowel sounds. No rebound, guarding, or rigidity. No masses appreciated. EXTREMITIES: Nontender, good range of motion, no pitting or edema. NEUROLOGICAL: No focal neurological deficits. Moves all extremities spontaneously Motor and sensory grossly intact on exam. PSYCH: Normal mood, normal affect. SKIN: Warm, Dry, normal turgor, no rashes or lesions noted on exposed skin TRAVEL OUTSIDE OF THE [place] IN LAST 30 DAYS: No - Related Data Allergies/Adverse Reactions: codeine [Codeine] Allergy (Severe, Verified 10/18/17 07:52) RASH, ITCHING, SOB hydrochlorothiazide Allergy (Severe, Verified 10/18/17 07:52) Diarrhea lisinopril Allergy (Severe, Verified 10/18/17 07:52) Diahhrea morphine [Morphine] Allergy (Severe, Verified 10/18/17 07:52) SEVERE VOMITING NSAIDS (Non-Steroidal Anti-Inflamma [Nsaids] Allergy (Severe, Verified 10/18/17 07:52) INCREASE BLEEDING,SPONTANEOUS VESSELS BLEED Penicillins Allergy (Severe, Verified 10/18/17 07:52) BURNING RASH Soap [From Betadine] Allergy (Severe, Verified 10/18/17 07:52) BURNING RASH tapentadol HCl [From Nucynta] Allergy (Severe, Verified 10/18/17 07:52) vertigo severe thimerosal [Thimerosal] Allergy (Severe, Verified 10/18/17 07:52) eyes swell, rash, very sick latex [Latex] Allergy (Intermediate, Verified 10/18/17 07:52) ITCHING, BURNING EYES, swelling eyes albiglutide [From Tanzeum] Allergy (Verified 10/18/17 07:52) Makes IBS and GERD worse, "unable to keep anything down" gabapentin [From Neurontin] Allergy (Verified 10/18/17 07:52) "Excessive sweating" glimepiride [From Amaryl] Allergy (Verified 10/18/17 07:52) Makes IBS and GERD worse, "unable to keep anything down" metformin Allergy (Verified 10/18/17 07:52) Makes IBS and GERD worse, "unable to keep anything down" povidone-iodine [From Betadine] Allergy (Verified 10/18/17 07:52) BURNING RASH tramadol [Tramadol] Allergy (Verified 06/28/18 07:52) iodine [Iodine] Adverse Reaction (Severe, Verified 10/18/17 07:52) BURNING, RASH garlic Allergy (Severe, Uncoded 07/28/16 13:21) bloating, vomiting, diarrhea shrimp Allergy (Severe, Uncoded 07/28/16 13:21) No Enteric medications Allergy (Uncoded 07/28/16 13:21) Past Medical History - General Information source: Patient - Social History Smoking Status: Never Smoker Frequency of alcohol use: None Drug Abuse: None Family History: Hypertension Patient has suicidal ideation: No Patient has homicidal ideation: No - Past Medical History Cardiac Medical History: Reports: Hx Hypertension - USE MANUAL CUFF/MEDICATED Denies: Hx Atrial Fibrillation, Hx Congestive Heart Failure, Hx Coronary Artery Disease, Hx Heart Attack, Hx Hypercholesterolemia, Hx Peripheral Vascular Disease, Hx Pulmonary Embolism, Hx Heart Murmur Pulmonary Medical History: Reports: Hx Asthma, Hx Bronchitis - hx of, Hx Pneumonia - august 2012, Hx Sleep Apnea - cpap Denies: Hx COPD, Hx Respiratory Failure, Hx Tuberculosis Neurological Medical History: Reports: Hx Migraine. Denies: Hx Cerebrovascular Accident, Hx Seizures Endocrine Medical History: Reports: Hx Diabetes Mellitus Type 2, Hx Hypothyro idism - on meds. Denies: Hx Graves' Disease, Hx Hyperthyroidism Renal/ Medical History: Denies: Hx End Stage Renal Disease, Hx Kidney Stones, Hx Ovarian Cysts, Hx Peritoneal Dialysis, Hx Pelvic Inflammatory Disease Malignancy Medical History: Denies: Hx Breast Cancer, Hx Cervical Cancer, Hx Leukemia, Hx Lung Cancer, Hx Ovarian Cancer GI Medical History: Reports: Hx Gastroesophageal Reflux Disease - severe, Hx Hiatal Hernia, Hx Irritable Bowel - hx of. Denies: Hx Crohn's Disease, Hx Hepatitis, Hx Liver Failure, Hx Pancreatitis, Hx Ulcer Musculoskeletal Medical History: Reports Hx Arthritis - OSTEOARTHRITIS, Reports Hx Fibromyalgia, Denies Hx Multiple Sclerosis, Denies Hx Muscular Dystrophy, Denies Hx Systemic Lupus Erythematosus Psychiatric Medical History: Denies: Hx Bipolar Disorder, Hx Dementia, Hx Depression, Hx Post Traumatic Stress Disorder, Hx Schizophrenia Traumatic Medical History: Denies: Hx Fractures Infectious Medical History: Denies: Hx Hepatitis, Hx HIV Past Surgical History: Reports: Hx Appendectomy, Hx Cholecystectomy, Hx Hysterectomy, Hx Tonsillectomy - t and a. Denies: Hx Colostomy, Hx Mastectomy, Hx Open Heart Surgery, Hx Pacemaker - Immunizations Hx Diphtheria, Pertussis, Tetanus Vaccination: Yes Hx Pneumococcal Vaccination: 04/23/15 Physical Exam - Vital signs Vitals: Temp Pulse Resp BP Pulse Ox 98.3 F 105 H 20 207/92 H 95 09/24/18 15:52 09/24/18 15:52 09/24/18 15:52 09/24/18 15:52 09/24/18 15:52 Course - Re-evaluation Re-evalutation: Patient seen and examined vital signs reviewed. Laboratory data and/or imaging were ordered as appropriate for the patient's presenting symptoms and complaint, with consideration of any critical or life threatening conditions that may be associated with their obtained history and exam as noted above. Patient was treated with IV Dilaudid 1 mg Results were reviewed when available and demonstrated unremarkable blood work The patient was re-evaluated and was stable and improved Evaluation was most consistent with asymptomatic hypertension, chronic low back pain, encourage the patient to continue taking her home medications as directed. Results were discussed with the patient at this point, after careful consideration I feel that that patient can be discharged from the emergency department, the patient was educated treatments and reasons to return to the emergency department based on their presumed diagnosis as noted above, they were advised to followup with a primary care physician in 2-3 days. Patient was agreeable to plan of care. *Note is created using voice recognition software and may contain spelling, syntax or grammatical errors. Laboratory 09/24/18 09/24/18 09/24/18 17:23 17:23 20:03 WBC 11.8 H RBC 5.61 H Hgb 15.1 Hct 44.6 MCV 80 MCH 26.9 L MCHC 33.8 RDW 15.6 H Plt Count 266 Seg Neutrophils % 57.2 Lymphocytes % 33.0 Monocytes % 8.4 Eosinophils % 0.8 Basophils % 0.6 Absolute Neutrophils 6.7 Absolute Lymphocytes 3.9 Absolute Monocytes 1.0 Absolute Eosinophils 0.1 Absolute Basophils 0.1 Sodium Cancelled 141.0 Potassium Cancelled 3.9 Chloride Cancelled 106 Carbon Dioxide Cancelled 27 Anion Gap Cancelled 8 BUN Cancelled 15 Creatinine Cancelled 0.96 Est GFR ( Amer) Cancelled > 60 Est GFR (Non-Af Amer) Cancelled 58 L Glucose Cancelled 61 L Calcium Cancelled 9.5 Total Bilirubin Cancelled 0.4 Direct Bilirubin Cancelled 0.2 Neonat Total Bilirubin Cancelled Not Reportable Neonat Direct Bilirubin Cancelled Not Reportable Neonat Indirect Bili Cancelled Not Reportable AST Cancelled 35 ALT Cancelled 48 Alkaline Phosphatase Cancelled 108 Total Protein Cancelled 7.1 Albumin Cancelled 4.2 - Vital Signs Vital signs: Temp Pulse Resp BP Pulse Ox 98.3 F 105 H 19 178/78 H 93 09/24/18 15:52 09/24/18 15:52 09/24/18 19:40 09/24/18 19:40 09/24/18 19:40 - Laboratory Result Diagrams: 09/24/18 17:23 09/24/18 20:03 Laboratory results interpreted by me: 09/24/18 09/24/18 17:23 20:03 WBC 11.8 H RBC 5.61 H MCH 26.9 L RDW 15.6 H Est GFR (Non-Af Amer) 58 L Glucose 61 L Discharge - Discharge Clinical Impression: HTN (hypertension) Qualifiers: Hypertension type: unspecified Qualified Code(s): I10 - Essential (primary) hypertension Back pain Qualifiers: Back pain location: low back pain Chronicity: chronic Back pain laterality: avery ateral Sciatica presence: unspecified whether sciatica present Qualified Code(s): M54.5 - Low back pain; G89.29 - Other chronic pain Condition: Stable Disposition: HOME, SELF-CARE Instructions: High Blood Pressure ([facility]) Additional Instructions: Please resume your home blood pressure medications and follow-up with pain management tomorrow, your blood work was otherwise unremarkable and looked good, normal kidney function. Please follow-up with her primary care physician otherwise regarding your blood pressure management. Referrals: COURTNEY MARTÍNEZ MD [ACTIVE STAFF] - Follow up in 3-5 days
[2018-09-24 20:45] LABS: ALANINE AMINOTRANSFERASE 48 U/L (9-52); ALBUMIN 4.2 g/dL (3.5-5.0); ALKALINE PHOSPHATASE 108 U/L (38-126); ANION GAP 8 (5-19); ASPARTATE AMINO TRANSFERASE 35 U/L (14-36); BILIRUBIN,DIRECT 0.2 mg/dL (0.0-0.4); BILIRUBIN,TOTAL 0.4 mg/dL (0.2-1.3); BLOOD UREA NITROGEN 15 mg/dL (7-20); CALCIUM 9.5 mg/dL (8.4-10.2); CARBON DIOXIDE 27 mmol/L (22-30); CHLORIDE 106 mmol/L (98-107); POTASSIUM 3.9 mmol/L (3.6-5.0); TOTAL PROTEIN 7.1 g/dL (6.3-8.2)
[2018-09-24 20:55] LABS: GLUCOSE 61 mg/dL (75-110)
[2018-09-24 21:56] VITALS: BP 140/61
== END 2018-09-24 21:56 | disposition home or self-care (01) ==
LOC: ER 15:41
DX: I10 Essential (primary) hypertension (principal); G89.29 Other chronic pain; M54.5 Low back pain; E11.9 Type 2 diabetes mellitus without complications; E03.9 Hypothyroidism, unspecified; Z88.6 Allergy status to analgesic agent; Z88.0 Allergy status to penicillin; Z91.040 Latex allergy status; Z90.49 Acquired absence of other specified parts of digestive tract; Z90.710 Acquired absence of both cervix and uterus
CPT/HCPCS: 99283; 96374; 36415; 85025; 80053; J1170

== ENCOUNTER → 2018-11-08 | Outpatient (CLI) | payer MEDICARE, OTHER ==
[2018-11-08 16:57] LABS: INTERNATIONAL RATION (INR) 0.96; PROTHROMBIN TIME 12.8 SEC (11.4-15.4)
== END ==
LOC: OD 15:59
PROVIDERS: ATTEND Pain Medicine Interventional Pain Medicine
DX: D68.0 Von Willebrand disease (principal)
CPT/HCPCS: 36415; 85610; 85730

== ENCOUNTER → 2018-12-05 | Outpatient (CLI) | payer MEDICARE, OTHER ==
--- NOTE | 2018-12-05 19:24 | RADIOLOGY REPORT (SQ) ---
EXAM DESCRIPTION: SHOULDER LEFT 2 OR MORE VIEWS COMPLETED DATE/TIME: 12/05/2018 5:55 pm REASON FOR STUDY: M25.512 PAIN IN LEFT SHOULDER M25.512 PAIN IN LEFT SHOULDER COMPARISON: 02/24/2009 NUMBER OF VIEWS: Three views. TECHNIQUE: Internal rotation, external rotation, and Y view images acquired of the left shoulder. LIMITATIONS: None. FINDINGS: MINERALIZATION: Normal. BONES: No acute fracture. No worrisome bone lesions. JOINTS: No dislocation. VISUALIZED LUNGS AND RIBS: No pneumothorax. No rib fracture. SOFT TISSUES: No radiopaque foreign body. OTHER: No other significant finding. IMPRESSION: NEGATIVE STUDY OF THE LEFT SHOULDER. NO RADIOGRAPHIC EVIDENCE OF ACUTE INJURY. TECHNICAL DOCUMENTATION: JOB ID: [id number] [employer]- All Rights Reserved Reading location - IP/workstation name: [email or web address]
== END ==
LOC: RAD 17:27
PROVIDERS: ATTEND Pain Medicine Interventional Pain Medicine
DX: M25.512 Pain in left shoulder (principal)

== ENCOUNTER → 2019-03-06 | Outpatient (CLI) | payer MEDICARE, OTHER ==
[2019-03-06 16:18] LABS: INTERNATIONAL RATION (INR) 0.95; PROTHROMBIN TIME 12.7 SEC (11.4-15.4)
[2019-03-06 16:19] LABS: PARTIAL THROMBOPLASTIN TIME 30.3 SEC (23.5-35.8)
== END ==
LOC: OD 15:20
PROVIDERS: ATTEND Pain Medicine Interventional Pain Medicine
DX: D68.0 Von Willebrand disease (principal)
CPT/HCPCS: 36415; 85610; 85730

== ENCOUNTER → 2019-05-19 | Outpatient (CLI) | payer MEDICARE, OTHER ==
[2019-05-19 16:30] LABS: INTERNATIONAL RATION (INR) 0.97; PARTIAL THROMBOPLASTIN TIME 30.3 SEC (23.5-35.8); PROTHROMBIN TIME 12.9 SEC (11.4-15.4)
== END ==
LOC: OD 15:01
PROVIDERS: ATTEND Pain Medicine Interventional Pain Medicine
DX: D68.0 Von Willebrand disease (principal)
CPT/HCPCS: 36415; 85610; 85730

== ENCOUNTER → 2019-07-17 | Outpatient (CLI) | payer MEDICARE, OTHER ==
[2019-07-17 17:52] LABS: INTERNATIONAL RATION (INR) 0.94; PARTIAL THROMBOPLASTIN TIME 23.5 SEC (23.5-35.8); PROTHROMBIN TIME 12.6 SEC (11.4-15.4)
== END ==
LOC: OD 16:11
PROVIDERS: ATTEND Pain Medicine Interventional Pain Medicine
DX: D68.0 Von Willebrand disease (principal)
CPT/HCPCS: 36415; 85610; 85730

== ENCOUNTER → 2019-09-11 | Outpatient (CLI) | payer MEDICARE, OTHER ==
[2019-09-11 16:58] LABS: INTERNATIONAL RATION (INR) 0.96; PROTHROMBIN TIME 12.8 SEC (11.4-15.4)
[2019-09-11 16:59] LABS: PARTIAL THROMBOPLASTIN TIME 30.1 SEC (23.5-35.8)
== END ==
LOC: OD 15:47
PROVIDERS: ATTEND Pain Medicine Interventional Pain Medicine
DX: D68.0 Von Willebrand disease (principal)
CPT/HCPCS: 36415; 85610; 85730

== ENCOUNTER → 2019-09-25 | Outpatient (CLI) | payer MEDICARE, OTHER ==
--- NOTE | 2019-09-26 12:37 | EKG REPORT ---
SEVERITY:- NORMAL ECG - SINUS RHYTHM : Confirmed by: Arleth Mcgarry 26-Sep-2019 12:36:18
== END ==
LOC: OD 12:15
PROVIDERS: ATTEND Pain Medicine Interventional Pain Medicine
DX: I49.9 Cardiac arrhythmia, unspecified (principal)
CPT/HCPCS: 93005; 93010

== ENCOUNTER → 2019-11-14 | Outpatient (CLI) | payer MEDICARE, OTHER ==
[2019-11-14 16:03] LABS: INTERNATIONAL RATION (INR) 0.93; PARTIAL THROMBOPLASTIN TIME 29.3 SEC (23.5-35.8); PROTHROMBIN TIME 12.5 SEC (11.4-15.4)
== END ==
LOC: OD 15:03
PROVIDERS: ATTEND Pain Medicine Interventional Pain Medicine
DX: D68.0 Von Willebrand disease (principal)
CPT/HCPCS: 36415; 85610; 85730

== ENCOUNTER → 2020-04-19 | Outpatient (CLI) | payer MEDICARE, OTHER ==
[2020-04-19 17:24] LABS: INTERNATIONAL RATION (INR) 0.95; PROTHROMBIN TIME 12.9 SEC (11.4-15.4)
== END ==
LOC: OD 16:13
PROVIDERS: ATTEND Pain Medicine Interventional Pain Medicine
DX: D68.0 Von Willebrand disease (principal)
CPT/HCPCS: 36415; 85610; 85730